=== PATIENT | male | born 1970 | race Caucasian/White ===

== ENCOUNTER 2017-03-24 05:22 | Inpatient (IN) | payer OTHER ==
--- NOTE | 2017-03-21 13:11 | PREOPHP ---
DATE OF ADMISSION: 03/24/2017 This patient is being admitted electively on 03/24/[address] Edvin Rodriguez. 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 He injured his neck. He has been having right-si ded neck pain radiating down his right arm with numbness. He has had the pain and numbness since th e injury. He has failed medical therapy and has decided, and has been recommended to have surgery. He has been diagnosed with a cervical disk herniation. MEDICATIONS: The patient is on the following medications: 1. Bupropion 300 mg in the morning, 150 mg at night. 2. [place] 10/325 q.6h. p.r.n. pain. 3. Fluoxetine 20 mg a day. 4. Bystolic 5 mg a day. PAST MEDICAL HISTORY: 1. Anxiety, depression. 2. Hypertension. 3. Cervical spine disease with radiculopathy. FAMILY HISTORY: Both parents are alive and well. SOCIAL HISTORY: The patient does not smoke. He drinks alcohol, beer mainly a couple times a week. 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 REVIEW OF SYSTEMS: CONSTITUTIONAL: No chills, no weight gain, no loss of appetite, no fever, no weakness, no weight lo ss, no fatigue. PSYCHOLOGICAL: He does have a history of anxiety, depression and is on medication for that. OPHTHALMOLOGIC: He does have diminished vision and uses reading glasses. EARS, NOSE AND THROAT: Negative. CARDIORESPIRATORY: He denies any exertional chest pain, chest pressure, cough, ankle swelling. GASTROINTESTINAL: Negative. NEUROLOGIC: He does have some right arm numbness and tingling. UROLOGIC: Negative. PHYSICAL EXAMINATION: GENERAL: At this time, reveals a well-developed man who seems anxious. VITAL SIGNS: Temperature 98.9, blood pressure 156/104, heart rate 98. HEENT: Head normocephalic. Eyes: Extraocular muscles intact. Nose and mouth are normal. NECK: Supple. No neck vein distention. LUNGS: Clear to auscultation. HEART: Regular rhythm. No murmurs, gallops or rubs. ABDOMEN: Soft, nontender, no masses or megaly. EXTREMITIES: No peripheral edema. Pedal pulses are 2+ bilaterally. IMPRESSION: This patient is being seen and was seen by me last week in preoperative clearance for s urgery to repair of cervical spine disk herniation. The patient did have elevated blood pressure wh en he saw me. This was a new diagnosis. He has not had a history of hypertension. I placed the pa charlette on Bystolic 5 mg a day. I think part of the patient's elevated blood pressure is due to anxie ty and tachycardia. He has no other cardiologic symptoms. He will continue the Bystolic 5 mg at [facility] daily. I will follow him postoperatively. He is cleared for the surgery pending laboratory vaurn ts that are normal and a normal blood pressure at presentation for his surgery. Dictated By: MILES BARON MD, ND/GABRIELLE Conf#: [id number] DID#: [id number]
--- NOTE | 2017-03-21 13:12 | RADRPT ---
PROCEDURE: XR Chest. CLINICAL INDICATION: Preoperative chest TECHNIQUE: Chest PA and lateral. COMPARISON: No comparison available. FINDINGS: The mediastinal structures are unremarkable. The heart is normal in size and configuration. The pu lmonary vascularity is normal. The lung fofana are unremarkable. No consolidation is identified. The pleural spaces are unremarkable. The axial skeleton is unremarkable. IMPRESSION: No active intrathoracic disease. RPTAT: HGDB .Adonay Morris MD, MD Date Time Electronically viewed and signed by .Adonay Morris MD, MD on 03/21/2017 13:11 .B/
[2017-03-21 16:29] VITALS: BMI 15.3
[2017-03-24] VITALS (20 sets, daily range): BP systolic 112–144; BP diastolic 71–91; PULSE 100–138; RESP 8–18; Ht 172.7 cm; Wt 63.5 kg
[~2017-03-24] VITALS: Ht 172.7 cm; Wt 63.5 kg
[2017-03-24] MEDS ORDERED: CEFAZOLIN 2 GM/50 ML (PMX) 50 ML IVPB SCH (06:00)
[2017-03-24] MEDS: LACTATED RINGER'S 1,000 ML IV* SCH (06:00)
[2017-03-24] MEDS ORDERED: GLYCOPYRROLATE 0.4 MG INJ ONE (06:17)
[2017-03-24] MEDS ORDERED: PROPOFOL 20 ML ONE (06:17)
[2017-03-24] MEDS ORDERED: NEOSTIGMINE 3 MG/3 ML SYRINGE ONE (06:17)
[2017-03-24] MEDS ORDERED: FENTAnyl 50 MCG/ML VIAL ONE ×2 (06:17→10:05)
[2017-03-24] MEDS ORDERED: MIDAZOLAM 1 MG/ML 2 ML INJ ONE (06:17)
[2017-03-24] MEDS ORDERED: ROCURONIUM 50 MG INJ ONE (06:17)
[2017-03-24] MEDS ORDERED: LIDOCAINE 2% (SDV) 5 ML INJ ONE (06:17)
[2017-03-24] MEDS ORDERED: EPHEDrine SULFATE 50 MG/5 ML SYG ONE (06:17)
[2017-03-24] MEDS ORDERED: SUCCINYLCHOLINE CHLORIDE 100 MG/5 ML SYG IV ONE (06:18)
[2017-03-24] MEDS ORDERED: ONDANSETRON 4 MG INJ ONE ×2 (06:19→13:22)
[2017-03-24] MEDS ORDERED: DEXAMETHASONE 4 MG/ML 1 ML INJ ONE (06:19)
[2017-03-24] MEDS ORDERED: NEBI5TAB9 PO (06:23)
[2017-03-24] MEDS ORDERED: FLUO60TA PO (06:29)
[2017-03-24] MEDS ORDERED: FLUO40CA PO (06:29)
[2017-03-24] MEDS ORDERED: BUSP10TA2 PO (06:29)
[2017-03-24] MEDS ORDERED: ESZO3TAB12 PO (06:29)
[2017-03-24] MEDS ORDERED: MELO7.5O PO (06:29)
[2017-03-24] MEDS ORDERED: THROMBIN 5000 UNIT VIAL ONE (06:43)
[2017-03-24] MEDS ORDERED: GELATIN SIZE 100 SPONGE ONE (06:43)
[2017-03-24] MEDS ORDERED: BUPIVACAINE 0.25% (MPF) 10 ML 10 ML VIAL ONE (06:43)
[2017-03-24] MEDS ORDERED: POLYMYXIN/BACITRACIN 1L IRRIG ONE (06:43)
[2017-03-24] MEDS ORDERED: DIPHENHYDRAMINE 50 MG INJ IV PRN ×2 (07:00→13:30)
[2017-03-24] MEDS ORDERED: OXYCODONE/ACETAMINOPHEN (5/325) TAB PO PRN ×4 (07:00→13:30)
[2017-03-24] MEDS ORDERED: ONDANSETRON 4 MG INJ IV PRN ×3 (07:00→14:00)
[2017-03-24] MEDS ORDERED: HYDROmorphONE (0.2 MG/ML) 10ML SYG IV PRN ×4 (07:00→13:30)
[2017-03-24] MEDS ORDERED: ATROPINE 1 MG/10 ML SYRINGE IV PRN ×2 (07:00→13:30)
[2017-03-24] MEDS ORDERED: EPHEDrine SULFATE 50 MG/5 ML SYG IV PRN ×2 (07:00→13:30)
[2017-03-24] MEDS ORDERED: FENTAnyl 50 MCG/ML VIAL IV PRN ×2 (07:00)
[2017-03-24] MEDS ORDERED: LABETALOL HCL 20MG INJ IV PRN (07:00)
[2017-03-24] MEDS ORDERED: MIDAZOLAM 1 MG/ML 2 ML INJ IV PRN ×2 (07:00→13:30)
[2017-03-24] MEDS ORDERED: MEPERIDINE 25 MG INJ IV PRN ×2 (07:00→13:30)
[2017-03-24] MEDS ORDERED: morphine (1 MG/ML) 10ML SYRINGE IV PRN ×6 (07:00→13:00)
[2017-03-24] MEDS ORDERED: hydrALAzine 20 MG INJ IV PRN ×2 (07:00→13:30)
--- NOTE | 2017-03-24 07:02 | HPN ---
Date/Time of Note Date/Time of Note DATE: 03/24/17 TIME: 07:02 Interval H&P Admission Note Pt. seen H&P reviewed: No system changes ROB CARRENO MD Mar 24, 2017 07:02
[2017-03-24] MEDS ORDERED: LABETALOL HCL 20MG INJ ONE (07:27)
[2017-03-24 07:40] LABS: PROTIME 13.2 Sec (12.2-14.2)
[2017-03-24 07:41] LABS: PARTIAL THROMBOPLASTIN TIME 28.1 Sec (25.0-35.0)
[2017-03-24 07:43] LABS: CREATININE 0.62 mg/dl (0.61-1.24)
[2017-03-24 07:44] LABS: CALCIUM 8.8 mg/dl (8.4-10.2)
[2017-03-24] MEDS ORDERED: hydrALAzine 20 MG INJ ONE (08:42)
[2017-03-24] MEDS ORDERED: FUROSEMIDE 20 MG INJ ONE (09:23)
--- NOTE | 2017-03-24 12:21 | RADRPT ---
PROCEDURE: XR Cervical Spine, 7 views. CLINICAL INDICATION: CERVICAL FUSION C4-5-6-7 TECHNIQUE: AP and lateral views of the cervical spine were obtained. The images were reviewed on a PACS workstation. COMPARISON: None. FINDINGS: There is decreased osseous mineralization. An endotracheal tube is noted. There has been interval placement of anterior cervical spine fusion hardware from C4 to C7. There is near anatomic alignment. The vertebral body alignment is within normal limits. There is no acute fracture. There is no subluxation. The intervertebral disc spaces are well maintained. There are no abnormal calcifications. IMPRESSION: Interval placement of anterior cervical spine fusion hardware from C4-C7 in near anatomic alignment. Decreased osseous mineralization. RPTAT: EE Physician Nicole Date Time Electronically viewed and signed by Physician Nicole on 03/24/2017 12:21 RA/
[2017-03-24] MEDS: FENTAnyl 50 MCG/ML VIAL IV PRN ×2 (13:15→13:30)
[2017-03-24] MEDS: HYDROmorphONE (0.2 MG/ML) 10ML SYG IV PRN ×3 (13:20→13:49)
[2017-03-24] MEDS: LABETALOL HCL 20MG INJ IV PRN ×2 (13:20→13:50)
[2017-03-24] MEDS ORDERED: NALOXONE (0.4 MG/ML) INJ IV PRN (14:00)
[2017-03-24] MEDS ORDERED: ZOLPIDEM 5 MG TAB PO PRN (14:00)
[2017-03-24] MEDS ORDERED: TRIMETHOBENZAMIDE 100 MG/ML VIAL IM PRN (14:00)
[2017-03-24] MEDS ORDERED: DIPHENHYDRAMINE 50 MG CAP PO PRN (14:00)
[2017-03-24] MEDS ORDERED: HYDROCODONE/APAP (5/325) TAB PO PRN ×2 (14:00)
[2017-03-24] MEDS ORDERED: NACL 0.9% 3 ML SYG IV SCH (14:00)
[2017-03-24] MEDS ORDERED: AL HYDROX/MG HYDROX/SIMETH 30 ML CUP PO PRN (14:00)
[2017-03-24] MEDS ORDERED: PROCHLORPERAZINE 10 MG TAB PO PRN (14:00)
[2017-03-24] MEDS ORDERED: BETHANECHOL 25 MG TAB PO PRN (14:00)
[2017-03-24] MEDS ORDERED: DIAZEPAM 5 MG/ML SYG IM PRN (14:00)
[2017-03-24] MEDS ORDERED: ACETAMINOPHEN 325 MG TAB PO PRN (14:00)
[2017-03-24] MEDS ORDERED: DIAZEPAM 5 MG TAB PO PRN (14:00)
[2017-03-24] MEDS ORDERED: HYDROmorphONE 0.2 MG/ML PCA ONE (14:04)
[2017-03-24] MEDS: HYDROmorphONE 0.2 MG/ML PCA IV SCH (14:13)
[2017-03-24] MEDS: DEXTROSE 5%-0.45% NACL 1,000 ML IV SCH (15:00)
--- NOTE | 2017-03-24 15:05 | CONS ---
DATE OF ADMISSION: 03/24/2017 DATE OF CONSULTATION: MEDICAL CONSULTATION Thank you, Dr. Rodriguez, for asking me to participate in medical management of this patient. REASON FOR CONSULTATION: Tachycardia and hypertension. HISTORY OF PRESENT ILLNESS: This 46-year-old man is now postop a cervical spine surgery. The patie nt was injured at work on 02/14/2015. He injured his neck. Since that time, he has been having rig ht-sided neck pain radiating down his right arm with numbness. He has had the pain and numbness sin ce the injury. He has failed medical therapy and decided to undergo surgery. He has been diagnosed with a cervical disk herniation. He underwent surgery today by Dr. Rodriguez. He underwent a C4-C5 level, C5-C6 level, C6-C7 level anterior cervical diskectomy and fusion. The patient is awake and alert. He is in the recovery room. The patient denies any chest pain or shortness of breath. I di d see the patient preoperatively last week. At that time, he did have an elevated blood pressure an d was slightly tachycardic. I did start him on Bystolic 5 mg a day, which he has been taking. His blood pressure last week when I saw him was 155/104 with a heart rate of 98. PAST MEDICAL HISTORY: Remarkable for anxiety/depression, hypertension, cervical spine disease with radiculopathy. FAMILY HISTORY: Both parents are alive and well. SOCIAL HISTORY: The patient does not smoke. He drinks alcohol socially. 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 PHYSICAL EXAMINATION: GENERAL: At this time reveals a well-developed man in no apparent distress. VITAL SIGNS: Temperature of 100, pulse is 114, was 138 earlier. He did receive some labetalol, res pirations 16, blood pressure 141/85, O2 saturation 99% on 2 L nasal cannula. HEENT: Head normocephalic. Eyes: Extraocular muscles intact. NOSE AND MOUTH: Normal. NECK: He has a rigid cervical collar on. LUNGS: Clear to auscultation. HEART: Regular rhythm. No murmurs, gallops, or rubs. ABDOMEN: Soft, nontender. EXTREMITIES: No peripheral edema. IMPRESSION: This patient is now postoperative a cervical spine surgery. He is awake and alert. He denies any chest pain or shortness of breath. The patient does have a sinus tachycardia. The gordon ent was recently diagnosed with hypertension by me and started on a beta sammy, Bystolic 5 mg a da y. PLAN: 1. Electrocardiogram 2. Transfer to the floor, depending upon EKG and other vital signs. 3. I will follow the patient along with you. 4. Postop cervical spine surgery protocol. 5. Check labs in the morning. Dictated By: MILES BARON MD, ND/GABRIELLE Conf#: [id number] DID#: [id number]
--- NOTE | 2017-03-24 15:22 | OPR ---
DATE OF OPERATION: 03/24/2017 PREOPERATIVE DIAGNOSIS: Herniated disk, C4-C5, C5-C6, C6-C7. POSTOPERATIVE DIAGNOSIS: Herniated disk, C4-C5, C5-C6, C6-C7. OPERATION PERFORMED: 1. Anterior cervical microdiskectomy at C4-C5. 2. Anterior cervical microdiskectomy at C5-C6. 3. Anterior cervical microdiskectomy at C6-C7. 4. Anterior cervical interbody arthrodesis C4-C5. 5. Anterior cervical interbody arthrodesis C5-C6. 6. Anterior cervical interbody arthrodesis at C6-C7. 7. Segmental spinal fixation from C4 to C7 using Alphatec plate and screws. 8. Left iliac bone graft. 9. Cosmetic wound closures (5 cm left cervical, 3 cm left iliac). 10. AP and lateral cervical radiographs (2 sets). 11. Intraoperative nerve monitoring (360 minutes). SURGEON: Edvin Rodriguez MD PROFESSOR OF EXERCISE SCIENCE: SAMIR Diggs ANESTHESIA: General endotracheal. ANESTHESIOLOGIST: Dr. Escalona ESTIMATED BLOOD LOSS: 150 mL, none replaced. DRAINS: Two medium Hemovac drains employed in the cervical wound, 2 medium Hemovac drains employed in the left iliac wound. COMPLICATIONS: None. PERTINENT HISTORY AND PHYSICAL: This is a 46-year-old male who sustained an injury to his neck in the course of employment on 02/14/2015. He has had extensive care since that time, has remained symptomatic with neck and upper extremity complaints which have been unresponsive to conservative management. He has undergone a number of diagnostic studies including an MRI of the cervical spine which demonstrated disk herniations at C4-C5, C5-C6, and C6-C7. Treatment options were discussed with the patient, who elected to proceed with surgery. OPERATIVE FINDINGS AT SURGERY: Herniations at C4-C5, C5-C6, and C6-C7 were confirmed. The baseline intraoperative nerve monitoring revealed a decrease in the right C6 potential of 40%, the right C7 potential of 30%. These both returned to normal at the completion of the surgery. OPERATIVE PROCEDURE: With the patient in supine position after satisfactory induction of general endotracheal anesthesia by Dr. Escalona, the patient was positioned with a 5-pound sandbag under the left buttock and a 3 L IV bottle under the shoulders. The anterior cervical spine and left iliac crest were prepped in usual sterile fashion. Athrombic pumps were applied to the below the knees to prevent venous stasis during and after the procedure and the indwelling Aiken also was placed preoperatively to facilitate bladder drainage during and after the procedure. A 5.0 cm incision was carried out on the anterior aspect of cervical spine at approximately 2 fingerbreadths above the left clavicle in line with the left clavicle through skin and subcutaneous tissue to the platysma fascia. The superficial retractors were placed and hemostasis secured with electrocautery. Throughout the procedure, copious amounts of antibacterial irrigating solution to periodically irrigate the wound. The platysma fascia was divided transversely and the interval between the sternocleidomastoid and strap muscles was entered with blunt dissection. The prevertebral soft tissues were cleared with a peanut elevator. The trachea and esophagus were mobilized to the right and protected with a Cloward hand- held retractor. A spinal needle was placed next to what was felt to be the C5- C6 and C6-C7 disk spaces, and a lateral roentgenogram was taken which confirmed anatomic localization. A 15-blade knife then used to cut a rectangular window in the annulus and anterior longitudinal ligament at C6-C7. The operating microscope was moved into place. The longissimus coli muscles were elevated bilaterally with a hot knife. The Cloward self-retaining retractor was used to facilitate soft tissue retraction. The 0, 2-0, 3-0, and 4-0 straight and angulated Verna curettes were then used to evacuate the nuclear contents back to the level of the posterior longitudinal ligament. The posterior longitudinal ligament was taken down in midline with a 2 mm Kerrison and taken over the foramina bilaterally. The Cloward interbody distractors were used to facilitate the disk space distraction. A high speed Ирина fredrick bur was then used to abrade the cartilaginous endplates down to subchondral bleeding bone. Attention then turned to the C5-C6 level where the identical procedure was carried out. The posterior longitudinal ligament was taken down at this level as well to decompress the cord and the exiting C6 nerve roots. Attention then turned to the C4-C5 level where the identical procedure was carried out and a posterior longitudinal ligament was taken down to facilitate decompression of the cord and the exiting C5 nerve roots at this level. The [place] fredrick lauryn was used to abrade the cartilagenous endplate at C4-C5 and C5-C6 as described above for C6-C7. While x-ray is being developed, attention was turned to the left iliac crest where a 3 cm incision was carried out 1 inch proximal and 1 inch lateral to the anterior superior iliac spine in line with the iliac crest through skin and subcutaneous tissue to the deep fascia. Superficial retractors were placed and hemostasis secured with electrocautery. Throughout the procedure, copious amounts of antibacterial irrigating solution used to periodically irrigate the wound. The skin was retracted over the level of the iliac crest, and the fascial incision made directly over the iliac crest where a subperiosteal dissection was then carried out in the inner and outer table of the left ilium. A tricortical iliac bone graft was then harvested measuring approximately 1 inch in length and 1 cm deep. The donor bone edges were thoroughly irrigated with antibacterial irrigating solution and then waxed for hemostasis. The wound was closed over 2 medium Hemovac drains, one below the fascia and one above the fascia, using #1 Stratafix sutures on the fascia, 2-0 Vicryl subcuticular cosmetic closing suture on the skin, and a 4-0 Vicryl subcuticular cosmetic closing suture on the skin. Attention then turned to the cervical wound where the tricortical iliac bone graft was divided into 3 segments, each approximately 6 mm in height and 8 mm in depth. The bone plug was inserted into the C4-C5 initially, then C6-C7, and finally C5-C6. A 56 mm Alphatec plate was then selected and temporarily transfixed to the anterior cervical spine with darts. AP and lateral x-rays were taken which showed satisfactory positioning of the bone plug and the hardware. The 14 mm variable angle screws were then placed into the screw holes , and the darts were then removed and replaced with screws as well. Final AP and lateral x-rays were taken which showed appropriate positioning of the hardware and the bone plugs. The wound was then closed in layers over 2 medium Hemovac drains, one below the fascia and one above the fascia, using 0 Vicryl Stratafix sutures on the interval between the sternocleidomastoid and strap muscles, 0 Vicryl sutures on the platysma fascia, 2-0 Vicryl sutures in subQ tissue, and a 4-0 Vicryl subcuticular cosmetic closing suture on the skin. Dermabond and sterile dressings were applied to both incisions and the patient' s neck was then immobilized in an [place] collar prior to extubation by Dr. Escalona. The patient having tolerated procedure well was then transported to the recovery room in satisfactory condition. At the conclusion of the procedure , sponge, instrument, and needle counts were all correct. NEED FOR VENEER SORTER: During this spinal surgical procedure, my food service assistant was used to retract and protect the spinal nerves and dural sac. My food service assistant also employed the suction catheters to evacuate blood from the surgical field to improve visualization of the neural structures. The food service assistant was medically necessary to facilitate the completion of the surgery in a safe and expeditious manner. [facility] regulations, as well as hospital bylaws, preclude the use of non-licensed health care personnel such as operating room technicians, to perform these functions. Throughout the procedure, neural monitoring was carried out using [employer] with SSEP, MEP, and EMG monitoring of the C4, C5, C6, C7, and C8 nerve roots along with spinal cord potentials. These were interpreted by a neurologist employed by [employer]. Dictated By: EDVIN RODRIGUEZ MD TM/GABRIELLE Conf#: [id number] DID#: [id number] CC: MILES BARON MD;*EndCC* MTDD
[2017-03-24] MEDS: CEPASTAT LOZENGE MT PRN (18:27)
[2017-03-24] MEDS: CEFAZOLIN 1 GM/50 ML (PMX) 50 ML IVPB SCH (18:27)
[2017-03-24] MEDS: RANITIDINE 150 MG TAB PO SCH (20:54)
[2017-03-25] VITALS: BP 116/81; PULSE 89; RESP 17
[2017-03-25] MEDS: CEFAZOLIN 1 GM/50 ML (PMX) 50 ML IVPB SCH ×3 (00:17→12:15)
[2017-03-25] MEDS: HYDROmorphONE 0.2 MG/ML PCA IV SCH (00:25)
[2017-03-25] MEDS: DEXTROSE 5%-0.45% NACL 1,000 ML IV SCH ×2 (00:58→09:55)
[2017-03-25 04:10] VITALS: BP 114/77; PULSE 92; RESP 18
[2017-03-25 05:49] LABS: ADD SCAN DIFF NO
[2017-03-25] MEDS: LACTATED RINGER'S 1,000 ML IV* SCH (06:00)
[2017-03-25 06:10] LABS: ALBUMIN 3.7 g/dl (3.3-4.9)
[2017-03-25 06:11] LABS: POTASSIUM 3.4 mmol/L (3.5-5.1)
[2017-03-25 06:13] LABS: ALBUMIN/GLOBULIN RATIO 1.12; BILIRUBIN,INDIRECT 1.1 mg/dl (0-1.1); BILIRUBIN,TOTAL 1.1 mg/dl (0.2-1.3); CREATININE 0.61 mg/dl (0.61-1.24)
[2017-03-25 06:14] LABS: CALCIUM 7.5 mg/dl (8.4-10.2)
[2017-03-25] MEDS: CEPASTAT LOZENGE MT PRN (06:31)
--- NOTE | 2017-03-25 07:09 | PN ---
Date/Time of Note Date/Time of Note DATE: 03/25/17 TIME: 07:07 Assessment/Plan Lines/Catheters IV Catheter Type (from Nrs): Peripheral IV Aiken in Place (from Nrs): Yes Subjective 24 Hr Interval Summary The patient is postop day #1 following multilevel anterior cervical microdiscectomy and interbody arthrodesis C4-C7. He is resting comfortably in bed. His Al[place] collar is in place. His Hemovac drains are minimal, and will be discontinued. His morning lab work shows a mild hyponatremia (133). His hemoglobin and hematocrit results are not on the chart thus far. Neurovascular structures are intact distally. His voice sounds somewhat hoarse. He will be mobilized with physical therapy as tolerated, and will be discharged home when cleared by physical therapy. Exam/Review of Systems Vital Signs Vitals Vital Signs Date Time Temp Pulse Resp B/P Pulse Ox O2 Delivery O2 Flow Rate FiO2 03/25/17 04:10 97.9 92 18 114/77 97 Nasal Cannula 2.0 Intake and Output 03/24/17 03/24/17 03/25/17 15:00 23:00 07:00 Intake Total 2500 ml 1250 ml 1780 ml Output Total 2090 ml 850 ml 1070 ml Balance 410 ml 400 ml 710 ml Results Result Diagram: 03/25/17 0505 ROB CARRENO MD Mar 25, 2017 07:09
[2017-03-25] MEDS ORDERED: BETHANECHOL 25 MG TAB PO PRN (08:00)
[2017-03-25 08:30] VITALS: BP 122/74; RESP 20
[2017-03-25] MEDS ORDERED: ASCORBIC ACID 500 MG TAB PO SCH (09:00)
[2017-03-25] MEDS ORDERED: DOCUSATE SODIUM 100 MG CAP PO SCH (09:00)
[2017-03-25] MEDS: RANITIDINE 150 MG TAB PO SCH (09:49)
[2017-03-25] MEDS: FERROUS SULFATE (EC) 325 MG TAB PO SCH ×2 (09:49→12:15)
[2017-03-25 10:36] LABS: BASOPHILS % 0.2 % (0.0-2.0); EOSINOPHILS % 0.1 % (0.0-7.0); HEMATOCRIT 36.9 % (42.0-52.0); LYMPHOCYTES # 0.8 10^3/ul (0.8-2.9); LYMPHOCYTES % 8.7 % (15.0-51.0); MEAN CORPUSCULAR HEMOGLOBIN 30.7 pg (29.0-33.0); MEAN CORPUSCULAR HGB CONC 32.5 g/dl (32.0-37.0); MEAN CORPUSCULAR VOLUME 94.4 fl (82.0-101.0); MEAN PLATELET VOLUME 9.7 fl (7.4-10.4); MONOCYTE # 1.2 10^3/ul (0.3-0.9); NEUTROPHIL # 7.3 10^3/ul (1.6-7.5); NEUTROPHILS % 77.7 % (39.0-77.0); PLATELET COUNT 251 10^3/UL (140-415); RED BLOOD COUNT 3.91 10^6/ul (4.70-6.10); RED CELL DISTRIBUTION WIDTH 13.7 % (11.5-14.5); WHITE BLOOD COUNT 9.4 10^3/ul (4.8-10.8)
[2017-03-25 11:22] LABS: ADD UMIC NO; URINE BILIRUBIN (Dip) NEGATIVE (NEGATIVE); URINE BLOOD (Dip) NEGATIVE (NEGATIVE); URINE COLOR LT. YELLOW (YELLOW); URINE GLUCOSE (Dip) NEGATIVE (NEGATIVE); URINE KETONES (Dip) NEGATIVE (NEGATIVE); URINE LEUKOCYTE ESTERASE (Dip) NEGATIVE (NEGATIVE); URINE NITRITE (Dip) NEGATIVE (NEGATIVE); URINE TOTAL PROTEIN (Dip) NEGATIVE (NEGATIVE); URINE UROBILINOGEN (Dip) 0.2 E.U./dL (0.1-1.0)
[2017-03-25] MEDS ORDERED: POTASSIUM CHLORIDE (SR) 20 MEQ TAB PO STA (13:56)
--- NOTE | 2017-03-25 14:00 | PDOCDIS ---
Discharge Instructions CONDITION Patient Condition: Good HOME CARE INSTRUCTIONS: Diet Instructions: Reduced SodiumSpecial Diet: RD ACTIVITY: Activity Restrictions: Slowly Increase Activity Rest between Activity Avoid heavy lifting Do not Drive Bathing Restrictions: Sponge Bath FOLLOW UP/APPOINTMENTS Appointments Dr Rodriguez , recommend to PCP for BP check and liver enzymes . MILES BARON MD Mar 25, 2017 13:59
--- NOTE | 2017-03-25 14:08 | CONS ---
Date/Time of Note Date/Time of Note DATE: 03/25/17 TIME: 14:02 Assessment/Plan Assessment/Plan Chief Complaint/Hosp Course 1. he is 1 day post op a cervical spine surgery . He is well except for some hoarseness . 2. his BP and HR are normal today . 3 . He can be discharged to home today . 4 . I told him that he needs to see a PCP to monitor his BP and to recheck his liver enzymes which are elevated . He agrees . Problems: Consultation Date/Type/Reason Admit Date/Time Mar 24, 2017 at 05:22 Initial Consult Date 24 HR Interval Summary Free Text/Dictation He is one day post op a cervical spine surgery . He is feeling well . Constitutional: improved, no complaints Exam/Review of Systems Vital Signs Vitals Vital Signs Date Time Temp Pulse Resp B/P Pulse Ox O2 Delivery O2 Flow Rate FiO2 03/25/17 08:30 97.5 70 20 122/74 99 03/25/17 08:00 Nasal Cannula 2.0 Intake and Output 03/24/17 03/24/17 03/25/17 15:00 23:00 07:00 Intake Total 2500 ml 1250 ml 1780 ml Output Total 2090 ml 850 ml 1070 ml Balance 410 ml 400 ml 710 ml Exam Constitutional: alert Psych: no complaints Respiratory: clear to auscultation Cardiovascular: regular rate and rhythm Gastrointestinal: soft Musculoskeletal: nl extremities to inspection Results Result Diagram: 03/25/17 0505 03/25/17 0505 Results 24 hrs Laboratory Tests Test 03/25/17 05:05 03/25/17 09:30 White Blood Count 9.4 Red Blood Count 3.91 L Hemoglobin 12.0 L Hematocrit 36.9 L Mean Corpuscular Volume 94.4 Mean Corpuscular Hemoglobin 30.7 Mean Corpuscular Hemoglobin Concent 32.5 Red Cell Distribution Width 13.7 Platelet Count 251 Mean Platelet Volume 9.7 Neutrophils % 77.7 H Lymphocytes % 8.7 L Monocytes % 13.0 H Eosinophils % 0.1 Basophils % 0.2 Nucleated Red Blood Cells % 0.0 Neutrophils # 7.3 Lymphocytes # 0.8 Monocytes # 1.2 H Eosinophils # 0.0 Basophils # 0.0 Nucleated Red Blood Cells # 0.0 Sodium Level 133 L Potassium Level 3.4 L Chloride Level 93 #L Carbon Dioxide Level 28 Anion Gap 15 Blood Urea Nitrogen 9 Creatinine 0.61 Glucose Level 145 # Calcium Level 7.5 L Total Bilirubin 1.1 Direct Bilirubin 0.00 Indirect Bilirubin 1.1 Aspartate Amino Transf (AST/SGOT) 60 H Alanine Aminotransferase (ALT/SGPT) 123 H Alkaline Phosphatase 57 Total Protein 7.0 Albumin 3.7 Globulin 3.30 H Albumin/Globulin Ratio 1.12 Urine Color LT. YELLOW Urine Clarity CLEAR Urine pH 6.0 Urine Specific [place] 1.020 Urine Ketones NEGATIVE Urine Nitrite NEGATIVE Urine Bilirubin NEGATIVE Urine Urobilinogen 0.2 E.U./dL Urine Leukocyte Esterase NEGATIVE Urine Hemoglobin NEGATIVE Urine Glucose NEGATIVE Urine Total Protein NEGATIVE Medications Medications Current Medications Lactated Ringer's 1,000 ml @ 20 mls/hr Q24H IV* ; Start 03/24/17 at 06:00 Dextrose/Sodium Chloride (D5-1/2ns) 1,000 ml @ 100 mls/hr Q10H IV Last administered on 03/25/17 00:58; Admin Dose 100 MLS/HR; Start 03/24/17 at 13:55 Acetaminophen/ Hydrocodone Bitart ([place] (5/325)) 1 tab Q4H PRN PO PAIN LEVEL 1 -5; Start 03/24/17 at 14:00 Acetaminophen/ Hydrocodone Bitart ([place] (5/325)) 2 tab Q4H PRN PO PAIN LEVEL 6 -10; Start 03/24/17 at 14:00 Zolpidem Tartrate (Ambien) 5 mg HS PRN PO INSOMNIA; Start 03/24/17 at 14:00 Prochlorperazine (Compazine) 10 mg Q4H PRN PO NAUSEA AND/OR VOMITING; Start at 14:00 Trimethobenzamide HCl (Tigan) 200 mg Q4H PRN IM NAUSEA AND/OR VOMITING; Start 03/24/17 at 14:00 Ondansetron HCl (Zofran Inj) 4 mg Q6H PRN IV NAUSEA AND/OR VOMITING; Start at 14:00 Al Hydrox/Mg Hydrox/Simethicone (Mag-Al Plus) 15 ml Q4H PRN PO CONSTIPATION; Start 03/24/17 at 14:00 Docusate Sodium (Colace) 100 mg BID PO Last administered on 03/25/17 09:49; Admin Dose 100 MG; Start 03/25/17 at 09:00 Acetaminophen (Tylenol Tab) 650 mg Q4H PRN PO TEMP GREATER THAN 101F OR PFEIFFER; Start 03/24/17 at 14:00 Ascorbic Acid (Vitamin C) 1,000 mg BID PO Last administered on 03/25/17 09:50 ; Admin Dose 1,000 MG; Start 03/25/17 at 09:00 Ferrous Sulfate (Ferrous Sulfate (Ec)) 325 mg TID PO Last administered on 12:15; Admin Dose 325 MG; Start 03/25/17 at 09:00 Ranitidine HCl (Zantac) 150 mg BID PO Last administered on 03/25/17 09:49; Admin Dose 150 MG; Start 03/24/17 at 21:00 Diazepam (Valium) 5 mg Q4H PRN PO MUSCLE SPASMS Last administered on 03/25/17 06:57; Admin Dose 5 MG; Start 03/24/17 at 14:00 Diazepam (Valium) 5 mg Q4H PRN IM MUSCLE SPASMS; Start 03/24/17 at 14:00 Phenol (Cepastat Lozenge) 1 lozenge PRN PRN MT SORE THROAT Last administered on 03/25/17 06:31; Admin Dose 3 LOZENGE; Start 03/24/17 at 14:00 Bethanechol Chloride (Urecholine) 25 mg PRN PRN PO UNABLE TO VOID Last administered on 03/25/17 09:50; Admin Dose 25 MG; Start 03/24/17 at 14:00 Diphenhydramine HCl (Benadryl) 50 mg Q6H PRN PO PRURITUS; Start 03/24/17 at 14: 00 Hydromorphone HCl (Dilaudid BUCKET PUSHER) Q4PCA IV Last administered on 03/25/17 00:25 ; Admin Dose 6 MG; Start 03/24/17 at 14:00 Naloxone HCl (Narcan) 0.2 mg Q2M PRN IV RR 8 BREATHS/MIN OR LESS; Start at 14:00 MILES BARON MD Mar 25, 2017 14:08
--- NOTE | 2017-03-25 22:08 | RADRPT ---
Vent Rate: 114 bpm RR Interval: 0 msec NE Interval: 152 msec QRS Duration: 72 msec QT Interval: 348 msec QTC Interval: 479 msec P-R-T Evans: 66 - 58 - 60 degrees Sinus tachycardia Otherwise normal ECG Electronically Signed By: Blake Ruiz [id number]
== END 2017-03-25 16:15 | disposition home or self-care (01) | DRG 473 ==
LOC: REC 05:22 → MS1 14:58
PROVIDERS: ADMIT Orthopaedic Surgery; ATTEND Orthopaedic Surgery
PROC: 0RB30ZZ Excision of Cervical Vertebral Disc, Open Approach (ICD-10-PCS; 2017-03-24)
PROC: 0QB30ZZ Excision of Left Pelvic Bone, Open Approach (ICD-10-PCS; 2017-03-24)
PROC: 0RG2070 Fusion of 2 or more Cervical Vertebral Joints with Autologous Tissue Substitute, Anterior Approach, Anterior Column, Open Approach (ICD-10-PCS; principal; 2017-03-24 07:00)
DX: M50.121 Cervical disc disorder at C4-C5 level with radiculopathy (principal); I10 Essential (primary) hypertension; F32.9 Major depressive disorder, single episode, unspecified; R00.0 Tachycardia, unspecified
CPT/HCPCS: 71020; 72050; 80048; 80053; 81003; 85025; 85610; 85730; 86850; 86900; 86901; 86920; 87086; 93005; 97116; 97162; 97530; J1940; J0330; J0360; J0690; J1100; J1170; J2250; J2405; J2710; J3010; J7042; J7120